=== PATIENT | male | born 1970 | race Caucasian/White ===

== ENCOUNTER 2018-08-27 12:54 | Emergency (ER) | payer SELFPAY ==
[~2018-08-27] VITALS: Ht 167.6 cm; Wt 83.6 kg
[2018-08-27 12:58] VITALS: BP 123/88
--- NOTE | 2018-08-27 13:04 | NUR ---
PT AMBULATED TO ER BED 05
--- NOTE | 2018-08-27 13:10 | NUR ---
PATIENT PRESENTS TO ED WITH C/O WOUND PUNCTURE TO RT KNEE X 1 WEEK AGO WHILE DOING YARD WORK. DENIES N/V; +FEVER; AFEBRILE AT THIS TIME, TEMP 98.0 ORAL. +THICK YELLOW DRAINAGE, NO ODOR. +SWELLING AND WARM TO TOUCH. PATIENT STATES PAIN OF 0/10 AT THIS TIME; MOTRIN 800MG ADMINISTERED BY AT APPROX 10AM. PER PT Tdap VACCINE LAST RECEIVED 4 YEARS AGO. DENIES ANY PREVIOUS MEDICAL HX. VSS; PATIENT POSITIONED FOR COMFORT; HOB ELEVATED; BEDRAILS UP X1; BED DOWN. PENDING ER MD EVALUATION.
--- NOTE | 2018-08-27 13:15 | NUR ---
DR REIS AT BEDSIDE EVALUATING PT.
[2018-08-27] MEDS ORDERED: HYDROcodone/APAP 5/325 MG 1 TAB TAB PO ONE (13:20)
[2018-08-27] MEDS ORDERED: VANCOMYCIN 1,000 MG in DEXTROSE 5% 250 ML IV ONE (13:20)
[2018-08-27] MEDS ORDERED: VANCOMYCIN 1,000 MG VIAL ONE (13:33)
--- NOTE | 2018-08-27 14:21 | NUR ---
ABX INFUSING ORDERED BY MD. NO ADVERSE REACTION AT THIS TIME. PT RESTING COMFORTABLY IN BED. DENIES ANY PAIN;FAMILY AT BEDSIDE.
[2018-08-27 15:29] VITALS: BP 132/82
--- NOTE | 2018-08-27 15:30 | NUR ---
Patient discharged with v/s stable. Written and verbal after care instructions given and explained. Patient alert, oriented and verbalized understanding of instructions. Ambulatory with steady gait. All questions addressed prior to discharge. ID band removed. Patient advised to follow up with PMD. Rx of Keflex, Bactrim DS, Motrin and [place] given. Patient educated on indication of medication including possible reaction and side effects. Opportunity to ask questions provided and answered.
== END 2018-08-27 15:30 | disposition home or self-care (01) ==
LOC: MED 12:54
DX: S81.031A Puncture wound without foreign body, right knee, initial encounter (principal); L03.115 Cellulitis of right lower limb; Z98.890 Other specified postprocedural states; W45.8XXA Other foreign body or object entering through skin, initial encounter; Y93.89 Activity, other specified; Y92.096 Garden or yard of other non-institutional residence as the place of occurrence of the external cause; Y99.8 Other external cause status
CPT/HCPCS: 96365; 99283; J3370